=== PATIENT | female | born 1955 | race Caucasian/White ===

== ENCOUNTER → 2018-02-15 09:29 | Outpatient (CLI) | payer OTHER, SELFPAY ==
[2018-02-15 12:39] LABS: AST(SGOT) 33 U/L (15-37); Alanine Aminotransfer ALT/SGPT 61 U/L (13-56); Albumin, Serum 3.9 g/dL (3.2-5.0); Alkaline Phosphatase 94 U/L (45-117); Anion Gap 11 (5-15); BUN 15 mg/dL (7-18); BUN/Creat Ratio 17.8 RATIO (10-20); Calcium,Total 9.2 mg/dL (8.5-10.1); Chloride 109 mmol/L (98-107); Cholesterol 232 mg/dL (200); Creatinine, Serum 0.84 mg/dL (0.55-1.02); EST Glomerular Filtration Rate 72 mL/min (>60); Est Glom Filt Rate - Afr Amer 88 mL/min (>60); Globulin 3.8 g/dL (2.2-4.2); Glucose 112 mg/dL (74-106); High Density Lipoprotein 37 mg/dL; Potassium 4.1 mmol/L (3.5-5.1); Protein, Total 7.7 g/dL (6.4-8.2); Sodium Level 143 mmol/L (136-145); Thyroid Stim Hormone (TSH) 4.07 uIU/mL (0.358-3.74); Triglycerides 262 mg/dL; Very Low Density Lipoprotein 52 mg/dL (5-40)
[2018-02-19 12:52] LABS: T4 Free Direct 1.29 ng/dL (0.76-1.46)
== END ==
PROVIDERS: Family Provider Family Medicine; PCP Family Medicine; Visit Provider Family Medicine
DX: Z00.00 Encounter for general adult medical examination without abnormal findings (principal)
CPT/HCPCS: 36415; 80053; 80061; 84439; 84443

== ENCOUNTER → 2021-01-28 09:36 | Outpatient (CLI) | payer MEDICARE, SELFPAY ==
[2021-01-28 12:20] LABS: Absolute Lymphocyte Count 1.78 X10^3/uL (0.83-4.51); Absolute Neutrophil Count 3.1 X10^3/uL (2.0-7.7); Basophil# 0.07 X10^3/uL; Basophil% 1.2 % (0-1); Eosinophils% 3.3 % (0-5); Hematocrit 44.3 % (37-47); Lymphocyte # 1.78 X10^3/ul (0.83-4.51); Lymphocyte % 29.5 % (19-41); Mean Corp Hgb Conc 31.6 g/dL (32-36); Mean Corpuscular Hgb 29.1 pg (27.0-32.0); Mean Corpuscular Volume 92.1 fL (81-99); Mean Platelet Vol. 11.9 fl (6.2-12.0); Monocyte# 0.87 X10^3/uL; Monocyte% 14.4 % (0-10); NRBC Flagged by Analyzer 0 % (0-5); Neutrophil % 51.4 % (47-70); Platelet Count 197 K/mm3 (150-450); RBC Distribution Width CV 13.2 % (11.6-14.6); RBC Distribution Width SD 44.9 fl (35.1-43.9); Red Blood Count 4.81 M/mm3 (4.2-5.4)
[2021-01-28 12:52] LABS: Anion Gap 8 (5-15); BUN 15 mg/dL (7-18); BUN/Creat Ratio 15.6 RATIO (10-20); Calcium,Total 8.8 mg/dL (8.5-10.1); Chloride 109 mmol/L (98-107); Cholesterol 242 mg/dL (200); Creatinine, Serum 0.96 mg/dL (0.55-1.02); EST Glomerular Filtration Rate 62 mL/min (>60); Est Glom Filt Rate - Afr Amer 75 mL/min (>60); Glucose 103 mg/dL (74-106); High Density Lipoprotein 42 mg/dL; Potassium 4.1 mmol/L (3.5-5.1); Sodium Level 140 mmol/L (136-145); Triglycerides 168 mg/dL; Very Low Density Lipoprotein 34 mg/dL (5-40)
== END ==
PROVIDERS: Nurse Practitioner Family; PCP Family Medicine; Visit Provider Family Medicine
DX: Z00.00 Encounter for general adult medical examination without abnormal findings (principal); E78.00 Pure hypercholesterolemia, unspecified
CPT/HCPCS: 36415; 80048; 80061; 85025

== ENCOUNTER → 2022-06-26 | Outpatient (CLI) | payer MEDICARE, BC, SELFPAY ==
[2022-06-26 12:49] LABS: Vitamin D,25 Hydroxy 25.4 ng/mL
[2022-06-26 13:34] LABS: AST(SGOT) 23 U/L (15-37); Alanine Aminotransfer ALT/SGPT 49 U/L (13-56); Albumin, Serum 3.6 g/dL (3.2-5.0); Alkaline Phosphatase 76 U/L (45-117); Anion Gap 9 (5-15); BUN 10 mg/dL (7-18); BUN/Creat Ratio 11.8 RATIO (10-20); Calcium,Total 8.9 mg/dL (8.5-10.1); Chloride 109 mmol/L (98-107); Cholesterol 224 mg/dL (200); Creatinine, Serum 0.85 mg/dL (0.55-1.02); EST Glomerular Filtration Rate 71 mL/min (>60); Est Glom Filt Rate - Afr Amer 86 mL/min (>60); Globulin 3.7 g/dL (2.2-4.2); Glucose 121 mg/dL (74-106); High Density Lipoprotein 44 mg/dL; Protein, Total 7.3 g/dL (6.4-8.2); Sodium Level 141 mmol/L (136-145); Thyroid Stim Hormone (TSH) 3.89 uIU/mL (0.358-3.74); Triglycerides 170 mg/dL; Very Low Density Lipoprotein 34 mg/dL (5-40)
== END | disposition home or self-care (01) ==
LOC: BIMLAB 09:14
PROVIDERS: PCP Internal Medicine; Referring Provider Internal Medicine; Visit Provider Internal Medicine
DX: E78.2 Mixed hyperlipidemia (principal); E03.9 Hypothyroidism, unspecified; E55.9 Vitamin D deficiency, unspecified
CPT/HCPCS: 36415; 80053; 80061; 82306; 84443

== ENCOUNTER 2022-06-29 09:30 | Outpatient (RCR) | payer MEDICARE, BC, SELFPAY ==
--- NOTE | 2022-06-16 09:56 | HP.OTEVAL_ITS ---
Patient's Visit Information COOPER SEARS is a 67 year old F, referred to Occupational Therapy by Dr. Daniel Dorman MD, with a diagnosis of left distal radius fx.. Date of Evaluation: 06/16/22 Occupational Therapist: Adelaida Berman, OTR/L, CHT - Subjective This 67 year old female was seen for OT eval with dx of left distal radius fx. pt states DOI 05/06/22 - pt did see drAlyson on 2021 and pt is 5 weeks and 6 days s/p from distal radius fx. pt states she was not place in cast just brace but has had little pain. pt states she has noticed a stiffness limited range of motion and weakness with daily tasks. pt would like to improve her ROM and strength to return to her PLOF. - ADLs Kitchen: Open jars, Open bottle caps Comments: pushing up from chair or table. holding bag. pushing door - Pain left wrist 0 Pain Intensity Range: 3, 5 - ROM Forearm: right supination 65* left supination 40* Wrist: right 65/55 left 60/45 - Strength Failure Analysis Technician: right 45# left 15# Lateral Pinch: right 6# left 6# Tripod Pinch: right 6# left 4# - Sensation Sensation Comments: denies - Quick DASH-Disab of Arm,Shoulder& Hand Quick DASH Score: 22.5000 - Goals Goal:ROM equal to unaffected hand: Yes Goal:Failure Analysis Technician/Pinch strength at least 75% of unaffected hand: Yes Goal:No pain with affected hand use: Yes Goal:Full use of affected hand in daily activities including: Yes - Rehabilitation General Assessment: pt arrives 5 weeks 6 days following a distal radius fx. - pt demo with decrease in ROM, weakness and limited use of left UE with ADls and IADLS- pt would benefit from skilled OT services 2-3 visits to ensure pt has understanding of HEP and reaches her maximal rehab potential. Today therapist ed. pt on dx, healing of fx and PROM ex. for wrist ex/flex and supination- pt demo understanding and agree to POC. Rehabilitation Potential: Good - Anticipated Interventions A/AAROM/PROM, Strengthening, Triggerpoint Release, Joint Protection/Energy Conservation, Ergonomic Education, ADL Training, Education re Diagnosis, Caregiver Training, Home Program - Visit Plan Frequency: Every Other Week Duration: 6 Weeks General Plan: transition to strengthening with bands or free wts next session and give HEP TEXT: Thank you for the opportunity to evaluate your patient. For Medicare and Medicare HMO plans, please review the plan of care and approve it. It will need to be FAXED BACK to us at [phone] for Medicare purposes. Please let me know if there are questions or concerns regarding this plan of care. Physician Signature: Date:
--- NOTE | 2022-08-17 13:49 | HP.OT.NRP ---
COOPER SEARS was seen in my office for initial evaluation on 06/16/22. The following Plan of Care was established for this patient: Initial Frequency: Every Other Week Initial Duration: 6 Weeks Plan: one more visit to ensure HEp Anticipated Interventions: A/AAROM/PROM, Strengthening, Triggerpoint Release, Joint Protection/Energy Conservation, Ergonomic Education, ADL Training, Education re Diagnosis, Caregiver Training, Home Program This patient was last seen in our office 06/29/22. Pertinent comments regarding their Occupational therapy will appear below: pt was seen for 2 OT sessions. No further apts have been scheduled. Due to time lapse in services pt is d/c. At this point I will be discontinuing this patient from occupational therapy. I would be happy to see this patient again in the future if found appropriate by the physician. Thank you! Adelaida Berman, OTR/L, CHT
== END 2022-06-29 19:00 | disposition home or self-care (01) ==
LOC: OT 09:30
PROVIDERS: PCP Family Medicine; Referring Provider Orthopaedic Surgery Sports Medicine; Visit Provider Orthopaedic Surgery Sports Medicine
DX: S52.502D Unspecified fracture of the lower end of left radius, subsequent encounter for closed fracture with routine healing (principal)
CPT/HCPCS: 97110; 97140; 97166

== ENCOUNTER → 2022-07-18 | Outpatient (CLI) | payer MEDICARE, BC, SELFPAY ==
--- NOTE | 2022-07-18 07:26 | BI_ITS ---
MAMMOGRAPHY - BILATERAL SCREENING REASON FOR EXAM: Female, 67 years old. Routine annual screening examination. PERTINENT HISTORY: Non-contributory. TECHNIQUE: Digital bilateral breast josé (3D mammographic acquisition) in the CC and MLO projections. 2-D mediolateral oblique (MLO) and craniocaudad (CC) views of both breasts were obtained. CAD: Full Field Digital Mammography with Computer Added Detection was performed. COMPARISON: Comparison is made with prior examination dated 12/08/2014 and 11/16/2011. FINDINGS: Breast Composition: The breasts are heterogeneously dense, which may obscure small masses. There are no dominant masses or suspicious calcifications. Stable small benign appearing right axillary lymph nodes. No other significant abnormalities are identified. There has been no significant change since the prior study. BI/SCRN MAMM (CAD)W/JOSÉ BILAT IMPRESSION: Stable bilateral screening mammogram. Yearly follow-up mammogram recommended. (A) ASSESSMENT CATEGORY: BIRADS Category 2: Benign. A letter regarding these results will be sent to the patient by the facility within 30 days. Approximately 10% of breast cancers are not detected by mammography. A normal mammogram should not delay biopsy of a clinically suspicious abnormality. [id number] Electronically Signed: Ho Hercules MD at 10:13 EST ,
== END | disposition home or self-care (01) ==
LOC: OPBI 07:23
PROVIDERS: PCP Internal Medicine; Referring Provider Family Medicine; Visit Provider Family Medicine
DX: Z12.31 Encounter for screening mammogram for malignant neoplasm of breast (principal)
CPT/HCPCS: 77063; 77067

== ENCOUNTER → 2023-01-22 | Outpatient (CLI) | payer MEDICARE, BC, SELFPAY ==
[2023-01-22 12:33] LABS: Absolute Lymphocyte Count 1.81 X10^3/uL (0.83-4.51); Absolute Neutrophil Count 3.9 X10^3/uL (2.0-7.7); Basophil# 0.08 X10^3/uL; Basophil% 1.2 % (0-1); Eosinophil# 0.27 X10^3/uL; Eosinophils% 3.9 % (0-5); Hematocrit 44.4 % (37-47); Hemoglobin 14.4 g/dL (12.0-15.0); Lymphocyte # 1.81 X10^3/ul (0.83-4.51); Lymphocyte % 26.3 % (19-41); Mean Corp Hgb Conc 32.4 g/dL (32-36); Mean Corpuscular Hgb 30.3 pg (27.0-32.0); Mean Corpuscular Volume 93.5 fL (81-99); Mean Platelet Vol. 11.9 fl (6.2-12.0); Monocyte# 0.82 X10^3/uL; Monocyte% 11.9 % (0-10); NRBC Flagged by Analyzer 0 % (0-5); Neutrophil # 3.89 X10^3/uL (2.7-7.7); Neutrophil % 56.6 % (47-70); Platelet Count 196 K/mm3 (150-450); RBC Distribution Width CV 13.2 % (11.6-14.6); RBC Distribution Width SD 45.4 fl (35.1-43.9); Red Blood Count 4.75 M/mm3 (4.2-5.4); White Blood Count 6.9 K/mm3 (4.4-11.0)
[2023-01-22 12:56] LABS: ALB/GLOB Ratio 0.9 RATIO (0.9-2.4); AST(SGOT) 25 U/L (15-37); Alanine Aminotransfer ALT/SGPT 45 U/L (13-56); Albumin, Serum 3.6 g/dL (3.2-5.0); Alkaline Phosphatase 81 U/L (45-117); Anion Gap 6 (5-15); BUN 15 mg/dL (7-18); BUN/Creat Ratio 17.3 RATIO (10-20); Calcium,Total 8.9 mg/dL (8.5-10.1); Chloride 109 mmol/L (98-107); Cholesterol 240 mg/dL (200); Creatinine, Serum 0.87 mg/dL (0.55-1.02); EST Glomerular Filtration Rate 69 mL/min (>60); Est Glom Filt Rate - Afr Amer 84 mL/min (>60); Globulin 3.8 g/dL (2.2-4.2); Glucose 121 mg/dL (74-106); High Density Lipoprotein 42 mg/dL; Potassium 4.2 mmol/L (3.5-5.1); Protein, Total 7.4 g/dL (6.4-8.2); Sodium Level 141 mmol/L (136-145); Thyroid Stim Hormone (TSH) 4.21 uIU/mL (0.358-3.74); Triglycerides 141 mg/dL; Very Low Density Lipoprotein 28 mg/dL (5-40)
== END | disposition home or self-care (01) ==
LOC: BIMLAB 09:02
PROVIDERS: PCP Internal Medicine; Visit Provider Internal Medicine
DX: Z00.00 Encounter for general adult medical examination without abnormal findings (principal); E78.2 Mixed hyperlipidemia
CPT/HCPCS: 36415; 80053; 80061; 84443; 85025

== ENCOUNTER 2023-06-01 08:30 | Outpatient (RCR) | payer MEDICARE, BC, SELFPAY ==
--- NOTE | 2023-04-30 12:26 | HP.OTEVAL ---
Patient's Visit Information Visit Information Visit Information: COOPER SEARS is a 68 year old F, referred to Occupational Therapy by TONYA Rebolledo, with a diagnosis of right dequervains. Date of Evaluation: 04/30/23 Occupational Therapist: Adelaida Berman, ROMELIA/Yaritza, CHT Subjective Subjective: This 68 year old female was seen for OT eval with dx with DeQuervain's tenosynovitis) - pt states she has struggled with right wrist pain since November and has had a decrease in her IND with ADLs and IADLS. pt state she started to perform pool ex with the foam dumbbells' and has notice improvement- has thumb brace she is wearing. pt states still just struggling with pain and use of right hand with ADls. ADLs Dressing: Button shirt and Pants Eating: Cut food Toileting: Perineal care Kitchen: Chop with knife, Peel fruits & vegetables, Open jars, Pour from pitcher and Lift saucepan Yard: Use pruners and Use trowel Pain right wrist: Current Pain Intensity: 0 Pain Intensity Range: 5 ROM Wrist: right 60/45 left60/55 CMC: right 5 left 15 MP: right 50 left 50 IP: right 40 left 50 Radial Abduction: right 40 left 45 ROM Comments: right UD [address] 10 Strength Drug Safety Assistant: right 45# left 40# Lateral Pinch: right 10# left 14# Tripod Pinch: right 10# left 10# Special Tests WHAT Test: right positive Quick DASH-Disab of Arm,Shoulder& Hand Quick DASH Score: 32.5000 Goals Goal:: pt will demo a increase in right wrist ROM by 15* to increase pts ind. with ADls and IADls by d.c Goal:: pt will report pain no greater than 1/10 with use of right UE with ADLs and IADLs by d.c pt will demo the ability to perform Radial dev. with no pain by d.c Goal:: Pt will demo understanding of joint protection and ergonomics when performing BADLs and IADLs by d/c Pt will demo understanding of adaptive Equipment use to decrease stress on joints to allow pt to perform BADSL and IADLS at ANA level. Goal:: Pt will demo understanding of using supportive bracing 80% of workday/ADLS to decrease stress on tendon origin to allow healing and decrease pain by end of 2nd session. Rehabilitation General Assessment: pt arrives with symptoms of DeQuervain's she has been dealing with since November. Pt has pain and weakness limiting use of right hand for ADLs and IADLs- pt would benefit form skilled OT services 1-2x week for 4-6 weeks to return pt to her PLOF. Therapist ed. pt on POC- pt demo understanding and agree to POC. Rehabilitation Potential: Good Anticipated Interventions Anticipated Interventions: A/AAROM/PROM, Strengthening, Triggerpoint Release, Modalities, Orthoses, Joint Protection/Energy Conservation, Education re assistive Equipment, Education re Diagnosis and Home Program Visit Plan Frequency: 1-2x /Week Duration: 2-4 Weeks TEXT: Thank you for the opportunity to evaluate your patient. For Medicare and Medicare HMO plans, please review the plan of care and approve it. It will need to be FAXED BACK to us at [phone] for Medicare purposes. Please let me know if there are questions or concerns regarding this plan of care. Physician Signature: Date:
== END 2023-06-01 19:00 | disposition home or self-care (01) ==
LOC: OT 08:30
PROVIDERS: PCP Internal Medicine; Referring Provider Physician Assistant; Visit Provider Physician Assistant
DX: M65.4 Radial styloid tenosynovitis [de Quervain] (principal); M25.531 Pain in right wrist
CPT/HCPCS: 97035; 97110; 97140; 97166

== ENCOUNTER → 2024-01-24 | Outpatient (CLI) | payer MEDICARE, BC, SELFPAY ==
[2024-01-24 12:31] LABS: Absolute Lymphocyte Count 2.07 X10^3/uL (0.83-4.51); Absolute Neutrophil Count 2.9 X10^3/uL (2.0-7.7); Basophil# 0.09 X10^3/uL; Basophil% 1.5 % (0-1); Eosinophil# 0.25 X10^3/uL; Eosinophils% 4.1 % (0-5); Lymphocyte # 2.07 X10^3/ul (0.83-4.51); Lymphocyte % 33.9 % (19-41); Mean Corp Hgb Conc 31.8 g/dL (32-36); Mean Corpuscular Hgb 29.4 pg (27.0-32.0); Mean Corpuscular Volume 92.2 fL (81-99); Mean Platelet Vol. 11.9 fl (6.2-12.0); Monocyte# 0.78 X10^3/uL; Monocyte% 12.8 % (0-10); NRBC Flagged by Analyzer 0 % (0-5); Neutrophil % 47.5 % (47-70); Platelet Count 189 K/mm3 (150-450); RBC Distribution Width CV 13.2 % (11.6-14.6); RBC Distribution Width SD 45.1 fl (35.1-43.9); Red Blood Count 4.77 M/mm3 (4.2-5.4); White Blood Count 6.1 K/mm3 (4.4-11.0)
[2024-01-24 12:38] LABS: AST(SGOT) 26 U/L (15-37); Alanine Aminotransfer ALT/SGPT 49 U/L (13-56); Albumin, Serum 3.6 g/dL (3.2-5.0); Alkaline Phosphatase 81 U/L (45-117); Anion Gap 7 (5-15); BUN 14 mg/dL (7-18); BUN/Creat Ratio 15.3 RATIO (10-20); Calcium,Total 9.4 mg/dL (8.5-10.1); Chloride 109 mmol/L (98-107); Cholesterol 219 mg/dL (200); Creatinine, Serum 0.92 mg/dL (0.55-1.02); EST Glomerular Filtration Rate 65 mL/min (>60); Est Glom Filt Rate - Afr Amer 78 mL/min (>60); Globulin 3.7 g/dL (2.2-4.2); Glucose 115 mg/dL (74-106); High Density Lipoprotein 42 mg/dL; Potassium 4.1 mmol/L (3.5-5.1); Protein, Total 7.3 g/dL (6.4-8.2); Sodium Level 140 mmol/L (136-145); Triglycerides 191 mg/dL; Very Low Density Lipoprotein 38 mg/dL (5-40)
== END | disposition home or self-care (01) ==
LOC: BIMLAB 08:03
PROVIDERS: PCP Internal Medicine; Referring Provider Internal Medicine; Visit Provider Internal Medicine
DX: Z00.00 Encounter for general adult medical examination without abnormal findings (principal); E78.2 Mixed hyperlipidemia
CPT/HCPCS: 36415; 80053; 80061; 85025

== ENCOUNTER → 2025-04-06 | Outpatient (CLI) | payer MEDICARE, BC, SELFPAY ==
[2025-04-06 12:08] LABS: Hematocrit 43.5 % (37-47); Hemoglobin 14.3 g/dL (12.0-15.0); Immature Granulocytes Count 0.010 X10^3/uL (0.0-0.0); Mean Corp Hgb Conc 32.9 g/dL (32-36); Mean Corpuscular Volume 89.9 fL (81-99); Mean Platelet Vol. 11.5 fl (6.2-12.0); NRBC Flagged by Analyzer 0 % (0-5); Platelet Count 208 K/mm3 (150-450); RBC Distribution Width CV 13.4 % (11.6-14.6); RBC Distribution Width SD 44.9 fl (35.1-43.9); Red Blood Count 4.84 M/mm3 (4.2-5.4); White Blood Count 6.5 K/mm3 (4.4-11.0)
[2025-04-06 12:55] LABS: AST(SGOT) 30 U/L (<=31); Alanine Aminotransfer ALT/SGPT 42 U/L (<=34); Albumin, Serum 4.1 g/dL (3.4-4.8); Alkaline Phosphatase 90 U/L (35-104); Anion Gap 13 (5-15); BUN 12 mg/dL (4-19); BUN/Creat Ratio 16.0 RATIO (10-20); Calcium,Total 9.3 mg/dL (7.6-11.0); Carbon Dioxide 19.6 mmol/L (21.0-32.0); Chloride 108 mmol/L (98-108); Cholesterol 235 mg/dL (<=200); Globulin 3.0 g/dL (2.2-4.2); Glucose 125 mg/dL (70-99); Low Density Lipoprotein Calc. 162 mg/dL; Potassium 4.0 mmol/L (3.3-5.1); Triglycerides 139 mg/dL; Very Low Density Lipoprotein 28 mg/dL (5-40); cholesterol:hdl ratio screen 5.16
== END | disposition home or self-care (01) ==
LOC: MFPLAB 09:58
PROVIDERS: PCP Internal Medicine; Visit Provider Family Medicine
DX: E66.811 Obesity, class 1 (principal); Z68.32 Body mass index [BMI] 32.0-32.9, adult; E78.00 Pure hypercholesterolemia, unspecified
CPT/HCPCS: 36415; 80053; 80061; 83036; 85025